=== PATIENT | male | born 1950 | race Caucasian/White ===

== ENCOUNTER 2018-06-21 02:34 | Observation (INO) | payer OTHER, MEDICARE ==
--- NOTE | 2018-06-21 02:48 | EDPHY ---
H & P Stated Complaint: dizziness, awoke from sleep ~0200 dizzy, denies vision troubles Time Seen by Provider: 06/21/18 02:48 HPI/ROS: HPI CHIEF COMPLAINT: Dizziness, room spinning. HISTORY OF PRESENT ILLNESS: 67-year-old male, presents emergency room with dizziness described as room spinning sensation. This started why he was tossing and turning in bed. He states he woke up he was trying to get comfortable tossed and turned and developed dizziness. He states he was initially rather disoriented. Was dark in his room. He eventually turn the lights on set up a felt very dizzy. It is worse with certain head movements especially when he makes quick movements with his head. Associated nausea with but no vomiting. Denies double vision or blurry vision. Denies headache. Denies neck pain. He has never had this before. Due to the ongoing room spinning or dizziness sensation worse when he moves his head he decided come the emergency room for evaluation. Denies any chest pain or shortness of breath. Patient states symptoms started a half an hour to an hour ago. Past Medical History: Hyperlipidemia, thyroid disease Past Surgical History: Thyroid surgery Social History: Denies drugs alcohol tobacco. Resides locally. Family History: History of cardiovascular and CVA disease. ROS REVIEW OF SYSTEMS: 10 Systems were reviewed and negative with the exception of the elements mentioned in the history of present illness. Exam Constitutional appears well nontoxic, triage nursing summary reviewed, vital signs reviewed, awake/alert. Eyes normal conjunctivae and sclera, EOMI, PERRLA. HENT normal inspection, atraumatic, moist mucus membranes, no epistaxis, neck supple/ no meningismus, no raccoon eyes. Respiratory clear to auscultation bilaterally, normal breath sounds, no respiratory distress, no wheezing. Cardiovascular rate normal, regular rhythm, no murmur, no edema, distal pulses normal. Gastrointestinal soft, non-tender, no rebound, no guarding, normal bowel sounds, no distension, no pulsatile mass. Genitourinary no CVA tenderness. Musculoskeletal no midline vertebral tenderness, full range of motion, no calf swelling, no tenderness of extremities, no meningismus, good pulses, neurovascularly intact. Skin pink, warm, & dry, no rash, skin atraumatic. Neurologic unremarkable neurological exam however with quick head movements laterally left and right this develops worsening dizziness especially when he goes to sit up and does this. awake, alert and oriented x 3, AAOx3, moves all 4 extremities equally, motor intact, sensory intact, CN II-XII intact, normal cerebellar, normal vision, normal speech. Psychiatric normal mood/affect. Heme/Lymph/Immune no lymphadenopathy. Differential Diagnosis: Includes but is not limited to in a particular order benign positional vertigo, Meniere's disease, posterior circulation stroke, electrolyte disturbance, dehydration, ACS Medical Decision Making: Plan for this patient IV establishment IV fluid bolus , meclizine PO 25 mg, IV Valium 2.5 mg, IV fluid bolus, check basic blood work, EK G. CT scan head without contrast. Re-evaluation: EKG interpretation by me on record in [employer] system. Impression time of EKG 2:50 a.m. Sinus rhythm rate of 59 no signs of acute ischemia. No ST elevation no ST depression no T-wave abnormalities. 0307AM: spoke with [facility] Dr. Lopez, reviewed the case in detail. Recommend CT head without contrast and CT angiogram head and neck. He would not proceed with tPA at this time. Does sound positional. However given that was sudden onset and happened while was lying down sleeping does recommend inpatient observation for vertigo an inpatient MR I. Does not feel that we need to get an MRI at this time however would proceed with CT scan head without contrast CT angiogram head and neck and treat symptomatically. CT scan head without contrast negative for acute bleed or stroke. Called to me by Dr. Crump. CT angiogram head and neck with IV contrast for dizziness negative for dissection or acute inclusion called to me by Dr. Crump. Patient agrees for admission. Spoke with the hospitalist service Dr. Cervantes Agrees to admit. Plan for re-eval. MRI brain today. 0405: Patient is feeling better after IV fluids, p.o. Meclizine and IV Valium. Resting comfortably. Not as dizzy. Source: Patient - Personal History Current Tetanus Diphtheria and Acellular Pertussis (TDAP): No - Medical/Surgical History Hx Asthma: No Hx Chronic Respiratory Disease: No Hx Diabetes: No Hx Cardiac Disease: No Hx Renal Disease: No Hx Cirrhosis: No Hx Alcoholism: No Hx HIV/AIDS: No Hx Splenectomy or Spleen Trauma: No Other PMH: KIDNEY STONES, THYROID SURGERY - Social History Smoking Status: Never smoked Constitutional: Initial Vital Signs Temperature (C) 36.4 C 06/21/18 02:40 Heart Rate 81 06/21/18 02:40 Respiratory Rate 18 06/21/18 02:40 Blood Pressure 126/85 H 06/21/18 02:40 O2 Sat (%) 91 L 06/21/18 02:40 O2 Delivery Mode Nasal Cannula O2 (L/minute) 1 Allergies/Adverse Reactions: No Known Allergies Allergy (Unverified 01/09/15 21:37) Home Medications: Medication Instructions Recorded Rosuvastatin Calcium [Crestor 40mg 40 mg PO DAILY18 01/09/15 (*)] Acetaminophen [Tylenol 325mg (*)] 325 mg PO DAILY PRN 06/21/18 Aspirin [Aspirin 81mg (*)] 81 mg PO DAILY18 06/21/18 C/E/Zn/Cu/OM3/DHA/EPA/LUT/ZEAX 1 each PO DAILY 06/21/18 [Preservision Areds 2 Softgel] Herbals/Supplements -Info Only 1 ea PO DAILY 06/21/18 Meclizine HCl [Meclizine HCl 12.5 12.5 - 25 mg PO BID PRN #30 tab 06/21/18 mg (*)] Multivitamins [Multivitamin (*)] 1 each PO DAILY 06/21/18 [place]-3 Fatty Acids [Fish Oil 1000 1,000 mg PO DAILY 06/21/18 mg (*)] Medical Decision Making - Data Points Laboratory Results: Laboratory Results 06/21/18 02:56 06/21/18 02:56 Medications Given: Discontinued Medications Diazepam (Valium) 2.5 mg IVP EDNOW ONE Stop: 06/21/18 02:57 Last Admin: 06/21/18 03:07 Dose: 2.5 mg Diazepam (Valium) 7.5 mg PO ONCALL ONE Stop: 06/21/18 07:02 Last Admin: 06/21/18 09:21 Dose: Not Given Diazepam (Valium) 7.5 mg PO ONCALL ONE Stop: 06/21/18 09:16 Last Admin: 06/21/18 09:24 Dose: 7.5 mg Sodium Chloride (Ns) 1,000 mls @ 0 mls/hr IV EDNOW ONE; Wide Open PRN Reason: Protocol Stop: 06/21/18 02:55 Last Admin: 06/21/18 03:07 Dose: 1,000 mls Sodium Chloride (Ns) 1,000 mls @ 75 mls/hr IV CONT [place]TON Stop: 12/18/18 04:44 Last Admin: 06/21/18 05:46 Dose: 1,000 mls Meclizine HCl (Meclizine Hcl) 25 mg PO EDNOW ONE Stop: 06/21/18 02:57 Last Admin: 06/21/18 03:07 Dose: 25 mg Point of Care Test Results: Chemistry 06/21/18 02:58 POC Troponin I 0.00 ng/mL ng/mL (0.00-0.08) Departure - Departure Disposition: [facility] Acute Clinical Impression: Dizziness Condition: Fair
[2018-06-21] MEDS ORDERED: NS 1,000 ML IV ONE (02:54)
[2018-06-21] MEDS ORDERED: DIAZEPAM 5 MG/ML 1 ML SYR IVP ONE (02:56)
[2018-06-21] MEDS ORDERED: MECLIZINE HCL 25 MG TAB PO ONE (02:56)
[2018-06-21] MEDS ORDERED: IOPAMIDOL (ISOVUE 370) 100 ML BTL IV ONE (03:09)
[2018-06-21 03:10] LABS: PLATELET COUNT 128 10^3/uL (150-400)
[2018-06-21 03:15] LABS: PROTIME(PATIENT) 13.4 SEC (12.0-15.0)
[2018-06-21] MEDS ORDERED: PROMETHAZINE HCL 25 MG/ML INJ IVP PRN (04:32)
[2018-06-21] MEDS ORDERED: ACETAMINOPHEN 325 MG TAB PO PRN (04:32)
[2018-06-21] MEDS ORDERED: ONDANSETRON 4 MG/2 ML VIAL IVP PRN (04:32)
[2018-06-21] MEDS ORDERED: ONDANSETRON DISINTEGRATING 4 MG TAB PO PRN (04:32)
[2018-06-21] MEDS ORDERED: ACETAMINOPHEN 650 MG SUPP PR PRN (04:32)
[2018-06-21] MEDS ORDERED: MECLIZINE HCL 12.5 MG TAB PO PRN (04:34)
[2018-06-21] MEDS ORDERED: DIAZEPAM 5 MG TAB PO PRN (04:34)
[2018-06-21] MEDS ORDERED: NS 1,000 ML IV SCH (04:45)
[2018-06-21 06:05] VITALS: BP 112/71
[2018-06-21] MEDS ORDERED: DIAZEPAM 5 MG TAB PO ONE ×2 (07:01→09:15)
--- NOTE | 2018-06-21 09:30 | ASMTCASEMG ---
Living Arrangements What is your living Answers: Alone arrangement? Who do you live with? Type Of Residence What kind of residence do Answers: Apartment you live in? Discharge Plan Comments Coordination Status Comments Notes: Patient is a 67yo male who was admitted for dizziness and nausea. Patient was admitted for tests to determine the cause of his symptoms. OT/PT HEAD CORRECTION OFFICER have been ordered. D/C plan TBD. CM will follow. Date Signed: 06/21/2018 09:29 AM Electronically Signed By:Lila Pina LCSW
--- NOTE | 2018-06-21 13:03 | GDS ---
ALL DIAGNOSES: Benign paroxysmal positional vertigo. HOSPITAL COURSE: A 67-year-old man admitted with dizziness. Given that this started while he was sl eeping, Neurology was consulted over the phone, and the recommendation was for brain imaging. He had negative CT of his head noncontrast, negative CT angiogram of his head and neck, as well as a negati ve MRI. He did have a positive [place]-Hallpike maneuver. His vertigo has significantly improved. He i s stable for discharge. He was given recommendations to perform the [place] maneuvers as well as a pre scription for meclizine to fill as needed. I have discussed all of this with him at the time of disc harge. He is otherwise discharged home in stable condition. He should follow up with his primary ca re physician in 1-2 weeks to assess his symptoms. /[id number]/MODL
== END 2018-06-21 12:48 | disposition home or self-care (01) ==
LOC: F2N 05:10
PROVIDERS: ADMIT Family Medicine; ATTEND Student in an Organized Health Care Education/Training Program
DX: H81.10 Benign paroxysmal vertigo, unspecified ear (principal); E78.5 Hyperlipidemia, unspecified; E86.9 Volume depletion, unspecified; M50.91 Cervical disc disorder, unspecified, high cervical region
CPT/HCPCS: 70450; 70496; 70498; 70551; 97112; 97161; G0378; G8978; G8979; G8980; J3360; Q9967; 84484-PO; 96374